=== PATIENT | male | born 1955 | race Caucasian/White ===

== ENCOUNTER 2016-09-13 09:30 | Emergency (ER) | payer OTHER ==
[2016-09-13 09:41] VITALS: BP 161/125; BMI 22.1
[2016-09-13] MEDS ORDERED: ASPIRIN PO ONE (09:41)
--- NOTE | 2016-09-13 09:53 | DR.GENAD ---
HPI - PCP Primary Care Physician: ARABELLA/ KIM - Complaint/Symptoms Chief Complaint Doctors Comments: Midsternal chest pain with SOB, nausea , fever , chills, sweats and weakness. Chief Complaint:: PT C/O CP AND SOB THAT STARTED LAST NIGHT. PT STATES HIS PAIN IS IN HIS EPIGASTRIC AREA. - Source History Provided: Patient - Mode of Arrival Mode of Arrival: EMS - Timing Onset of Chief Complaint: 09/12/16 Came on: Gradually - Duration Duration: Intermittent Duration: Minutes - Location Location: midsternal - Severity Severity: Moderate - Associated Signs and Symptoms Associated Signs and Symptoms: nausea, diaphoresis, SOB, cough, chills - Other History Other History: triple AAA PMH - PMH Past Medical History: Yes Past Medical History: Dyslipidemia Past Medical History Comment: AAA. Patient wa seen by PCP ~2 weeks ago and treated for bronchitis. He finished his antibiotics 3 days ago. Past Surgical History: Yes Surgical History: Appendectomy, Cholecystectomy, Other - Family History History of Family Medical Conditions: No - Social History Does any household member use tobacco: No Alcohol Use: None Do you use any recreational Drugs:: No Lives With: Family Lives Where: Home - infectious screening In the last 2 months have you had wt loss of >10#?: NO Have you had fever, night sweats or hemotysis?: No Have you traveled outside the country in the last 6 months?: No Isolation: Standard ROS - Review of Systems Constitutional: Chills, Diaphoresis, Fever, Weakness, Loss of Appetite Eyes: No Symptoms Reported ENTM: No Symptoms Reported Respiratoy: Productive Cough, Short of Breath Cardiovascular: Chest Pain Genitourinary: No Symptoms Reported Neurological: Anxiety, Weakness, Dizziness Musculoskeletal: No Symptoms Reported Integumentary: No Symptoms Reported Hematologic/Lymphatic: No Symptoms Reported Endocrine: No Symptoms Reported Psychiatric: No Symptoms Reported All Other Systems: Reviewed and Negative PE - Vital Signs Vitals: Temperature 98.9 F Pulse Rate 108 Respiratory Rate 22 Blood Pressure [Left Arm] 140/82 Blood Pressure 161/125 O2 Sat by Pulse Oximetry 96 - General Limitations: No Limitations General Appearance: Alert, In No Apparent Distress, Anxious - Head Head Exam: Normal Inspection - Eyes Eye exam: Normal Appearance - ENT ENT Exam: Normal Exam, Normal Oropharynx Mouth Exam: Normal Inspection Throat Exam: Normal Inspection - Neck Neck Exam: Normal Inspection, Full ROM, Trachea Midline - Chest Chest Inspection: Normal Inspection, Symmetric Chest Wall Rise - Respiratory Respiratory Exam: Bilateral Clear to Auscultation, Bilateral Crackles, Lower Crackles - Cardiovascular Cardiovascular Exam: Regular Rate, Normal Rhythm, Normal Heart Sounds - Abdominal Exam Abdominal Exam: Normal Inspection, Normal Bowel Sounds, Soft Abdominal Tenderness: Epigastrium - Extremities Extremities Exam: Normal Inspection, Full ROM - Back Back Exam: Normal Inspection - Neurologic Neurological Exam: Alert, Oriented X3, CN II-XII Intact - Psychiatric Psychiatric Exam: Normal Affect, Anxious - Skin Skin Exam: Warm, Dry, Normal Color [facility] - Differential Diagnosis Differential Diagnosis: r/o IA, pneumonia, PE, CHF - Discharge Plan Condition: Stable - Follow ups/Referrals Follow ups/Referrals: NFD,None [Primary Care Provider] - 3 days - Instructions
[2016-09-13 10:22] LABS: BASOPHILS % (AUTO) 0.4 % (0.2-1.0); EOSINOPHILS % (AUTO) 0.1 % (0.9-2.9); HEMOGLOBIN 17.1 g/dL (13.5-18.0); LYMPHOCYTES # (AUTO) 1.4 X10^3/uL (1.3-2.9); LYMPHOCYTES % (AUTO) 18.6 % (21.0-51.0); MEAN CORPUSCULAR HEMOGLOBIN 29.6 pg (27.0-34.0); MEAN CORPUSCULAR HGB CONC 34.8 g/dL (33.0-35.0); MEAN PLATELET VOLUME 7.9 fL (7.4-11.0); MONOCYTES # (AUTO) 0.5 x10^3/uL (0.3-0.8); MONOCYTES % (AUTO) 6.3 % (0.0-13.0); NEUTROPHILS # (AUTO) 5.7 x10^3/uL (2.2-4.8); NEUTROPHILS % (AUTO) 74.6 % (42.0-75.0); PLATELET COUNT 221 X10^3/uL (150.0-450.0); RED BLOOD COUNT 5.77 X10^6/uL (4.7-6.0); RED CELL DISTRIBUTION WIDTH 13.8 % (11.6-16.5); WHITE BLOOD COUNT 7.7 X10^3/uL (3.6-10.0)
--- NOTE | 2016-09-13 10:22 | RAD ---
AP Chest Indication: Chest pain with arm numbness Comparison: None available Findings: The examination is limited by some optimal visualization of the left costophrenic sulcus. There is c oarsening of the interstitium and blunting of the diaphragms consistent with COPD. However there is also suspected small right-sided pleural effusion versus pleural parenchymal scarring. No focal airs pace opacity or pneumothorax. Heart size is normal. No acute osseous abnormality. Impression: Radiographic findings suggesting COPD with either scarring or small right-sided pleural effusion. No acute airspace disease. Reported By:
[2016-09-13 10:39] LABS: BLOOD UREA NITROGEN 14 mg/dL (7-18); CALCIUM 9.3 mg/dL (8.5-10.1); CARBON DIOXIDE 27.4 mmol/L (21-32); CHLORIDE 104 mmol/L (98-107); CREATININE 1.11 mg/dL (0.70-1.30); GLUCOSE 108 mg/dL (65-99); SODIUM 138 mmol/L (136-145); TROPONIN I < 0.02 ng/mL (0-1.5); eGFR BLACK RACES > 60 (>60); eGFR NON BLACK RACES > 60 (>60)
[2016-09-13 10:43] LABS: ALANINE AMINOTRANSFERASE 50 Units/L (12-78); ALBUMIN 3.9 g/dL (3.4-5.0); ALKALINE PHOSPHATASE 65 Units/L (46-116); ASPARTATE AMINO TRANSFERASE 33 Units/L (15-37); CREATINE KINASE 49 Units/L (39-308); CREATINE KINASE MB < 1.0 ng/mL (0-4.0); MAGNESIUM 2.1 mg/dL (1.7-2.9); TOTAL PROTEIN 8.1 g/dL (6.4-8.2)
[2016-09-13] MEDS ORDERED: NS 100 ML IV 100 ML IV ONE (11:41)
--- NOTE | 2016-09-13 13:48 | CT ---
CTA chest and abdomen without contrast Indication: Epigastric pain with history of abdominal aortic aneurysm. Technique: 3 mm axial images of the chest and abdomen before after administration of IV contrast wit h coronal and sagittal reformatted images provided. 3D reformatted images of the thoracic and abdomi nal aorta performed from an independent workstation. Nonvascular findings: There is an approximate 16 mm hypoattenuating nodule within the right thyroid lobe on axial image 120, there is an additional approximate 14 mm hypoattenuating nodule within the superior portion of the right thyroid lobe on image 114. The heart size is normal without pericardia l effusion. Pulmonary arteries are well opacified without filling defects centrally or dilatation. T here are mildly enlarged right and left hilar lymph nodes without enlarged mediastinal adenopathy. N o axillary adenopathy. There is an approximate 4 mm subpleural pulmonary nodule within the right upp er lobe on image 136. Bilateral peribronchial thickening is noted with a few tree-in-bud opacities w ithin the left lower lobe along with fluid opacification in the left lower lobe bronchus seen on axi al image 158 likely representing aspiration versus infiltrate. There is mild peribronchial thickenin g within the right lower lobe as well. Mild paraseptal emphysema. No pleural effusion or pneumothora x. No focal hepatic lesion. Gallbladder surgically absent. Bile ducts are normal in caliber. The spleen , and pancreas are unremarkable. There is borderline thickening of both adrenal glands without nodul e. Neither kidney demonstrates evidence of nephrolithiasis, hydronephrosis or mass. Upper GI tract d emonstrates no evidence of mass or obstruction. Visualized colon is unremarkable. No free fluid or a denopathy. Vascular findings: There is normal caliber of the ascending, transverse and descending thoracic aort a. No intramural hematoma or tear aortic hematoma. No dissection. The suprarenal abdominal aorta is normal in caliber. There is patency of the celiac, common hepatic, splenic and left gastric arteries . The SMA and bilateral renal arteries are pain. There is moderate atheromatous plaque within the in frarenal abdominal aorta. There is an infrarenal abdominal aortic aneurysm measuring 4.2 x 3.7 cm on axial image 242. There is no periaortic hematoma. The common iliac arteries are patent with scatter ed calcified atherosclerotic disease. Review of bone windows demonstrates no acute osseous abnormality. Impression: 1.Infrarenal abdominal aortic aneurysm measuring 4.2 x 3.7 cm without periaortic hematoma or dissect ion. The remaining thoracic and abdominal aorta and large branch vessels demonstrate no aneurysmal d ilatation, stenosis or occlusion. 2. Bilateral hilar lymphadenopathy with opacification the left lower lobe bronchus and multiple cent rilobular nodular opacities within the left lower lobe consistent with acute cellular bronchiolitis and or aspiration for which clinical correlation is needed. 3. Moderate centrilobular emphysema with an approximate 4 mm subpleural pulmonary nodule within the right upper lobe, correlation followup chest CT in 6-12 months is recommended to ensure stability. 4. Refer to above for other incidental findings Reported By:
== END 2016-09-13 13:30 | disposition home or self-care (01) ==
LOC: ER 09:59
DX: R07.89 Other chest pain (principal); R06.02 Shortness of breath; R10.13 Epigastric pain; R68.83 Chills (without fever); R11.0 Nausea; R50.9 Fever, unspecified; R53.1 Weakness; B96.5 Pseudomonas (aeruginosa) (mallei) (pseudomallei) as the cause of diseases classified elsewhere
CPT/HCPCS: 36415; 71010; 71275; 74175; 80053; 82550; 82553; 83735; 83880; 84484; 85025; 85378; 85610; 85730; 87070; 87186; 87205; 93005; 93010; 96367; 99282; A4222